=== PATIENT | female | born 1960 | race Two or more races ===

== ENCOUNTER 2020-06-14 10:06 | Outpatient (CLI) | payer OTHER | END 2020-06-14 10:20 | disposition home or self-care (01) | LOC: SONOGRAMA 10:06 | DX: M25.561 Pain in right knee (principal) ==

== ENCOUNTER 2020-10-10 12:15 | Outpatient (CLI) | payer OTHER | END 2020-10-10 12:35 | disposition home or self-care (01) | LOC: SONOGRAMA 12:15 | PROVIDERS: ATTEND Pathology Anatomic Pathology & Clinical Pathology | DX: E04.2 Nontoxic multinodular goiter (principal) ==